=== PATIENT | male | born 1985 | race Caucasian/White ===

== ENCOUNTER 2017-08-27 22:45 | Emergency (ER) | payer OTHER ==
[~2017-08-27] VITALS: Ht 185.4 cm; Wt 107.0 kg
[2017-08-27 22:58] VITALS: BP 154/100; PULSE 90; RESP 18; TEMP 98.2; O2SAT 99
[2017-08-28 00:04] VITALS: BP 161/95; PULSE 88; RESP 18; O2SAT 99
[2017-08-28] MEDS ORDERED: KETOROLAC TROMETHAMINE 60 MG/2 ML (IM) VIAL IM ONE (00:15)
--- NOTE | 2017-08-28 00:34 | RADRPT ---
EXAM DATE/TIME: 08/28/2017 00:23 [place] COMPARISON: No previous studies available for comparison. INDICATIONS : Right shoulder pain. MEDICAL HISTORY : None. SURGICAL HISTORY : None. ENCOUNTER: Initial ACUITY: 3 days PAIN SCORE: 6/10 LOCATION: Right upper extremity FINDINGS: The acromioclavicular and coracoclavicular joint space widths are intact. There is a nondisplaced esperanza ency through the superior aspect of the body of the scapula concerning for a fracture at this level. No other fractures are seen. CONCLUSION: Nondisplaced scapular fracture. Kun Araya MD on August 28, 2017 at 0:31 Board Certified Radiologist. This report was verified electronically.
[2017-08-28 01:21] VITALS: BP 144/80; PULSE 79; RESP 16; O2SAT 97
[2017-08-28] MEDS ORDERED: ACETAMINOPHEN/HYDROcodone 325 MG/5 MG TAB PO ONE (02:00)
[2017-08-28] MEDS ORDERED: NORC5TAB PO (02:25)
--- NOTE | 2017-08-28 02:25 | PD ---
HPI Chief Complaint: Pain: Acute or Chronic Time Seen by Provider: 00:02 Travel History International Travel<30 days: No Contact w/Intl Traveler<30days: No Traveled to known affect area: No History of Present Illness HPI Patient is a 32-year-old male who comes in complaining of right shoulder pain says it started after he was moving 3 days ago. He says he was trying to push a dresser when he felt a pop in his right shoulder. He denies any direct trauma to the area. He tried taking some ibuprofen without relief of his symptoms. Says movement makes the pain worse. He denies any other injuries. Severity is mild to moderate. PFSH Past Medical History Medical History: Denies Significant Hx Diminished Hearing: No Tetanus Vaccination: Never Vaccinated Influenza Vaccination: No ?: Not Past Surgical History Surgical History: No Previous Surgery Social History Alcohol Use: Yes (occasional) Tobacco Use: No Substance Use: No Allergies-Medications (Allergen,Severity, Reaction): Coded Allergies: No Known Allergies (Unverified , 08/27/17) Reported Meds & Prescriptions Reported Meds & Active Scripts Active [place] (Hydrocodone-Acetaminophen) 5 Mg-325 Mg Tab 1 Tab PO Q6H PRN Review of Systems General / Constitutional: No: Fever, Chills HENT: No: Headaches, Lightheadedness Cardiovascular: No: Chest Pain or Discomfort Respiratory: No: Shortness of Breath Gastrointestinal: No: Nausea, Vomiting Musculoskeletal: Positive: Pain Skin: No Rash, No Change in Pigmentation Neurologic: No: Weakness, Dizziness Physical Exam Narrative GENERAL: Awake and alert, no acute distress. SKIN: Focused skin assessment warm/dry. No wounds or signs of infection. HEAD: Atraumatic. Normocephalic. EYES: Pupils equal and round. No scleral icterus. No injection or drainage. ENT: Mucous membranes pink and moist. CARDIOVASCULAR: Regular rate and rhythm. No murmur appreciated. RESPIRATORY: No accessory muscle use. Clear to auscultation. Breath sounds equal bilaterally. MUSCULOSKELETAL: No obvious deformities. No clubbing. No cyanosis. No edema. No bony tenderness to palpation of the right shoulder. Pain with external rotation of the shoulder. Full range of motion of the right shoulder. Radial pulse intact. NEUROLOGICAL: Awake and alert. No obvious cranial nerve deficits. Motor grossly within normal limits. Normal speech. PSYCHIATRIC: Appropriate mood and affect; insight and judgment normal. Data Data Last Documented VS Vital Signs Date Time Temp Pulse Resp B/P (MAP) Pulse Ox O2 Delivery O2 Flow Rate FiO2 08/28/17 02:40 74 18 142/80 (100) 99 08/28/17 01:21 Room Air 08/27/17 22:58 98.2 Orders Orders Shoulder, Complete (>2vws) (08/28/17 ) Ketorolac Inj (Toradol Inj) (08/28/17 00:15) Splint Or Brace Apply/Monitor (08/28/17 01:50) Acetamin-Hydrocod 325-5 Mg ([place] 5-325 (08/28/17 02:00) Ed Discharge Order (08/28/17 02:25) Mandatory Outpatient Referral (08/28/17 02:25) MDM Medical Decision Making Medical Screen Exam Complete: Yes Emergency Medical Condition: Yes Differential Diagnosis Shoulder sprain versus rotator cuff injury versus fracture Narrative Course Patient is a 32-year-old male comes in complaining of shoulder pain. Exam shows pain with external rotation. X-ray of the shoulder obtained shows a scapular fracture. Patient given pain medicine. Placed in a sling. Advised to wear the sling until he follows up with orthopedics. Advised to take pain medicine as needed. Advised return to the ED as needed for any worsening symptoms. Last 24 hours Impressions Shoulder X-Ray 08/28/17 0000 Signed Impressions: Service Date/Time: Monday, August 28, 2017 00:23 - CONCLUSION: Nondisplaced scapular fracture. Kun Araya MD Diagnosis Primary Impression: Scapular fracture Qualified Codes: S42.101A - Fracture of unspecified part of scapula, right shoulder, initial encounter for closed fracture Referrals: Hussein Harvey MD call for appointment Patient Instructions: General Instructions, Scapular Fracture (ED) Additional Instructions: Follow up with orthopedics. Wear your sling until your see the orthopedic surgeon. Take pain medicine as needed. Return to the ED as needed for any worsening symptoms. Scripts Hydrocodone-Acetaminophen ([place]) 5 Mg-325 Mg Tab 1 TAB PO Q6H Y for PAIN, #15 TAB 0 Refills Prov: Justina Landrum MD 08/28/17 Disposition: 01 DISCHARGE HOME Condition: Stable Justina Landrum MD Aug 28, 2017 02:25
[2017-08-28 02:40] VITALS: BP 142/80
== END 2017-08-28 02:41 | disposition home or self-care (01) ==
LOC: PHED 22:45
DX: S42.101A Fracture of unspecified part of scapula, right shoulder, initial encounter for closed fracture (principal); X50.9XXA Other and unspecified overexertion or strenuous movements or postures, initial encounter; Y93.89 Activity, other specified
CPT/HCPCS: 73030; 96372; 99283; J1885